=== PATIENT | male | born 1995 | race Caucasian/White ===

== ENCOUNTER 2024-03-25 18:00 | Emergency (ER) | payer MEDICAID ==
[~2024-03-25] VITALS: Ht 177.8 cm; Wt 127.0 kg
[2024-03-25 18:29] VITALS: BP 131/73; PULSE 111; RESP 16; TEMP 98.2; O2SAT 99
[2024-03-25] MEDS ORDERED: MAGNESIUM/ALUMINUM HYDROXIDE/SIMETHICONE 30ML UDC PO STA (18:33)
[2024-03-25] MEDS ORDERED: VISCOUS LIDOCAINE 2% 15 ML UDC PO NR (18:45)
[2024-03-25] MEDS ORDERED: FAMOTIDINE 20MG TABLET PO ONE (18:45)
[2024-03-25 20:22] LABS: BASOPHILS % 0.7 % (0.0-2.0); EOSINOPHILS % 0.6 % (0.0-5.0); HEMATOCRIT. 41.8 % (42.0-52.0); HEMOGLOBIN. 14.2 g/dL (14.0-18.0); LYMPHOCYTES % 23.3 % (20.0-50.0); MEAN CORPUSCULAR HEMOGLOBIN 30.8 pg (28.0-32.0); MEAN CORPUSCULAR HGB CONC 33.9 g/dL (31.0-37.0); MEAN CORPUSCULAR VOLUME 90.9 fL (80.0-94.0); MEAN PLATELET VOLUME 6.8 fl (7.4-10.4); MONOCYTES % 7.6 % (2.0-8.0); NEUTROPHILS % 67.8 % (40.0-76.0); PLATELET 296 x1000/uL (130-400); RED CELL DISTRIBUTION WIDTH 13.7 % (11.6-14.6); WHITE BLOOD COUNT 14.5 x1000/uL (4.5-11.0)
[2024-03-25 20:28] LABS: CHLORIDE 107 mEq/L (98-107); SODIUM 137 mEq/L (136-145)
[2024-03-25 20:29] LABS: CARBON DIOXIDE 25 mEq/L (21-32)
[2024-03-25 20:30] LABS: CALCIUM 9.8 mg/dL (8.7-10.4)
[2024-03-25 20:34] LABS: CREATININE 0.8 mg/dL (0.6-1.3); GLUCOSE 96 mg/dL (70-105); UREA NITROGEN BLOOD 12 mg/dL (9-23)
[2024-03-25 20:36] LABS: TROPONIN I HIGH SENSITIVITY < 4 ng/L (3.0-53)
== END 2024-03-25 18:38 | disposition left against medical advice (07) ==
LOC: ER 18:00
DX: R07.89 Other chest pain (principal)
CPT/HCPCS: 36415; 71045; 80048; 83880; 84484; 85025; 93005; 99285